=== PATIENT | female | born 1985 | race Two or more races ===

== ENCOUNTER 2017-01-02 00:20 | Emergency (ER) | payer SELFPAY ==
[~2017-01-02] VITALS: Ht 152.4 cm; Wt 61.0 kg
[2017-01-02 00:33] VITALS: Ht 152.4 cm; Wt 61.0 kg
[2017-01-02] MEDS ORDERED: LORAZEPAM 2 MG INJ IM ONE (01:30)
[2017-01-02 02:52] VITALS: BP 102/65; PULSE 88; RESP 18; TEMP 98
--- NOTE | 2017-01-02 03:33 | ERD ---
ER Documentation Chief Complaint Date/Time DATE: 01/02/17 TIME: 03:23 Chief Complaint SOB,LLE numbness,"unable to think straight;feel like loosing mind" HPI 31-year-old woman here because she is feeling anxious. She does have a history of anxiety disorder and possible psychiatric illness but denies suicidal homicidal ideation. She states she feels that his energy flowing into her house arrest anklet. She denies fevers or chills, no trauma, no chest pain or shortness of breath. ROS All systems reviewed and are negative except as per history of present illness. Allergies Allergies: Coded Allergies: No Known Allergy (Unverified , 01/02/17) PMhx/Soc History of Surgery: No Anesthesia Reaction: No Hx Neurological Disorder: No Hx Respiratory Disorders: No Hx Cardiac Disorders: No Hx Psychiatric Problems: Yes (depression) Hx Miscellaneous Medical Probl: Yes (thyroid problem) Hx Alcohol Use: Yes (hx ETOH abuse) Hx Substance Use: No Hx Tobacco Use: Yes (quit) Smoking Status: Former smoker FmHx Family History: No diabetes Physical Exam Vitals Vital Signs Date Time Temp Pulse Resp B/P Pulse Ox O2 Delivery O2 Flow Rate FiO2 01/02/17 02:52 98.0 88 18 102/65 100 Room Air 01/02/17 00:33 98.7 77 18 113/71 99 Physical Exam GENERAL: Well-developed, well-nourished, well-hydrated, anxious HEENT: Moist mucous membranes, pink conjunctiva, no cervical spine tenderness or step-off deformities, no goiter, no jaundice or icterus, extraocular movements intact without pain. No submandibular induration, and no pharyngeal erythema NEURO: Alert and oriented 3, cranial nerves II through XII intact bilaterally, pupils equal round reactive to light, no focal deficits or facial asymmetry, sensation intact distally Strength 5/5 in upper and lower extremities bilaterally CARDIAC: Regular rate and rhythm, no murmurs rubs or gallops LUNGS: Clear bilaterally no wheezing crackles or stridor ABDOMEN: Soft nontender, no guarding, no rigidity, no rebound, no psoas sign no obturator sign. Normoactive bowel sounds SKIN: Warm and dry to touch, no abrasions, contusions, or hematomas, no lacerations, no ecchymosis, no target lesions, and without ulcers EXTREMITIES: No clubbing cyanosis or edema, calves are bilaterally symmetrical, no Homans sign, no popliteal cord sign. Distal pulses equal and bilateral PSYCH: Anxious Results 24 hrs Current Medications Medications (Trade) Dose Ordered Sig/Marco Antonio Route PRN Reason Start Time Stop Time Status Last Admin Dose Admin Lorazepam (Ativan) 1 mg ONCE ONCE IM 01/02/17 01:30 01/02/17 01:31 DC 01/02/17 02:16 Procedures/MDM I administered lorazepam 0.5 mg IM 1. Patient felt better, and symptoms improved after lorazepam treatment. Patient feels much better at this time, and vital signs are normal, symptoms have improved. I did give strict instructions to return to the ED if symptoms continue or worsen, patient will otherwise follow-up with primary care physician. Patient understood instructions and agreed to plan. Disclaimer: Inadvertent spelling and grammatical errors are likely due to EHR/ dictation software use and do not reflect on the overall quality of patient care. Also, please note that the electronic time recorded on this note does not necessarily reflect the actual time of the patient encounter. Departure Diagnosis: Primary Impression: Anxiety attack Condition: Good Patient Instructions: Anxiety Reaction Ref[facility]: [facility] Usted se holcomb hecho un examen mdico de control que le indica que no est en rosario condicin que requiera tratamiento urgente en el Departamento de Emergencia. Un estudio ms profundo y el tratamiento de bah condicin pueden esperar sin ningn riesgo hasta que usted sea atendida/o en el consultorio de bah mdico o rosario cl epifanio. Es responsabilidad suya arreglar rosario dwaine para el seguimiento del lito. MANEJO DE CONDICIONES NO URGENTES EN EL FUTURO 1) Si usted tiene un mdico de atencin primaria: Usted debera llamar a bah mdico de atencin primaria antes de venir al departamento de emergencia. Despus de las horas de consultorio, bah doctor o bah asociado/a est disponible por telfono. El mdico o enfermero de jimmie en el servicio telefnico puede asesorarle por umer medio para atender el problema, o lito contrario se puede programar rosario dwaine. 2) Si usted no tiene un mdico de atencin primaria: Llame al mdico o clnica de referencia que aparece abajo eliane las horas de consultorio para hacer rosario dwaine para que le vean. CLINICAS: [facility] [phone] [facility] [phone] [address] [facility] [phone] [address] [facility] [facility] [phone] [facility] [facility] [phone] [address] [facility] [phone] [address] [facility]. [facility] () Usted se holcomb hecho un examen mdico de control que le indica que no est en rosario condicin que requiera tratamiento urgente en el Departamento de Emergencia. Un estudio ms profundo y el tratamiento de bah condicin pueden esperar sin ningn riesgo hasta que usted sea atendida/o en el consultorio de bah mdico o rosario cl epifanio. Es responsabilidad suya arreglar rosario dwaine para el seguimiento del lito. MANEJO DE CONDICIONES NO URGENTES EN EL FUTURO 1) Si usted tiene un mdico de atencin primaria: Usted debera llamar a bah mdico de atencin primaria antes de venir al departamento de emergencia. Despus de las horas de consultorio, bah doctor o bah asociado/a est disponible por telfono. El mdico o enfermero de jimmie en el servicio telefnico puede asesorarle por umer medio para atender el problema, o lito contrario se puede programar rosario dwaine. 2) Si usted no tiene un mdico de atencin primaria: Llame al mdico o condado institucions de referencia que aparece abajo eliane las horas de consultorio para hacer rosario dwaine para que le vean. SI USTED NO PUEDE PAGAR PARA TREY UN MEDICO puede ir a: [facility] [address] [place] [address] [facility] [address] [place] [address] [facility] [address] [place] [address] [facility] [address] [place], [place] [id number] JV PERES MD Jan 02, 2017 03:33
== END 2017-01-02 02:54 | disposition home or self-care (01) ==
LOC: E/R 00:20
DX: F41.9 Anxiety disorder, unspecified (principal); R40.2142 Coma scale, eyes open, spontaneous, at arrival to emergency department; R40.2252 Coma scale, best verbal response, oriented, at arrival to emergency department; R40.2362 Coma scale, best motor response, obeys commands, at arrival to emergency department; Z87.891 Personal history of nicotine dependence
CPT/HCPCS: 96372; 99284; J2060

== ENCOUNTER 2017-07-23 22:41 | Emergency (ER) | END 2017-07-24 05:40 | disposition home or self-care (01) ==